=== PATIENT | female | born 1990 | race Caucasian/White ===

== ENCOUNTER 2017-10-30 05:25 | Outpatient (CLI) | payer OTHER | END 2017-10-30 06:10 | disposition home or self-care (01) | LOC: OBT 05:25 → L-D 05:25 → OBT 06:10 | DX: O26.892 Other specified pregnancy related conditions, second trimester (principal); R10.2 Pelvic and perineal pain; Z3A.22 22 weeks gestation of pregnancy | CPT/HCPCS: Z7500 ==

== ENCOUNTER 2017-10-30 08:55 | Inpatient (IN) | payer OTHER ==
[2017-10-30] MEDS ORDERED: BUTORPHANOL 2 MG INJ (09:21)
[2017-10-30] MEDS ORDERED: OXYTOCIN 30 UNITS/LR 500 ML IV ×4 (09:30→15:00)
[2017-10-30] MEDS ORDERED: LACTATED RINGER'S 250 ML IV (09:30)
[2017-10-30] MEDS ORDERED: METHYLERGONOVINE 0.2 MG INJ IM ×3 (09:30→15:00)
[2017-10-30] MEDS ORDERED: MISOPROSTOL 200 MCG TAB PR ×3 (09:30→15:00)
[2017-10-30] MEDS ORDERED: LIDOCAINE 1% (MPF) 30 ML INJ INJ ×2 (09:30→14:00)
[2017-10-30] MEDS ORDERED: CARBOPROST 250 MCG INJ IM ×3 (09:30→15:00)
[2017-10-30] MEDS: BUTORPHANOL 2 MG INJ IV (09:40)
[2017-10-30] MEDS: LACTATED RINGER'S 1,000 ML IV (09:41)
[2017-10-30] MEDS: FENTAnyl 50 MCG/ML VIAL IM (10:31)
[2017-10-30] MEDS: MEPERIDINE 50 MG INJ IM (10:34)
[2017-10-30] MEDS ORDERED: IBUPROFEN 600 MG TAB PO ×2 (14:00→18:00)
[2017-10-30 14:15] LABS: ABNORMAL IP MESSAGE 1; HEMATOCRIT 32.9 % (37.0-47.0); MEAN CORPUSCULAR HEMOGLOBIN 28.1 pg (29.0-33.0); MEAN CORPUSCULAR HGB CONC 33.4 g/dl (32.0-37.0); MEAN CORPUSCULAR VOLUME 84.1 fl (82.0-101.0); MEAN PLATELET VOLUME 9.2 fl (7.4-10.4); PLATELET COUNT 295 10^3/UL (140-415); RED BLOOD COUNT 3.91 10^6/ul (4.20-5.40); RED CELL DISTRIBUTION WIDTH 13.5 % (11.5-14.5)
[2017-10-30 14:16] LABS: ADD MAN DIFF? YES; POSITIVE DIFF @See below
[2017-10-30] MEDS: OXYTOCIN 30 UNITS/LR 500 ML IV (14:19)
[2017-10-30 14:35] LABS: INR 1.05; PROTIME 13.8 Sec (11.9-14.9); PT RATIO 1.1
[2017-10-30 14:36] LABS: PARTIAL THROMBOPLASTIN TIME 32.1 Sec (25.0-35.0)
[2017-10-30 14:42] LABS: ANISOCYTOSIS 1+ (0-0); BAND NEUTROPHILS % (M) 18 % (0-4); LYMPHOCYTES #M 0.8 10^3/ul (0.8-2.9); LYMPHOCYTES % (M) 3 % (15-51); MONOCYTE #M 0.5 10^3/ul (0.3-0.9); MONOCYTES % (M) 2 % (0-11); PLATELET ESTIMATE NORMAL; POLYCHROMASIA 1+ (0-0); ROULEAU 1+ (0-0); SEGMENTED NEUTROPHILS (M) % 77 % (39-77)
[2017-10-30] MEDS ORDERED: WITCH HAZEL/GLYCERIN PAD PR (15:00)
[2017-10-30] MEDS ORDERED: ONDANSETRON 4 MG INJ IV (15:00)
[2017-10-30] MEDS ORDERED: HYDROCODONE/APAP (5/325) TAB PO (15:00)
[2017-10-30] MEDS ORDERED: ZOLPIDEM 5 MG TAB PO (15:00)
[2017-10-30] MEDS ORDERED: DIPHENHYDRAMINE 25 MG CAP PO (15:00)
[2017-10-30 15:21] LABS: RAPID PLASMA REAGIN NONREACTIVE (NR)
[2017-10-30] MEDS ORDERED: SENNA/DOCUSATE NA (8.6MG/50MG) TAB PO (21:00)
[2017-11-01] MEDS ORDERED: DIPHTH/TET/ACEL PERTUSS (ADULT) 0.5 ML VIAL IM* (09:00)
[2017-11-01] MEDS ORDERED: MEASLES,MUMPS,RUBELLA VACCINE INJ SC* (09:00)
[2017-11-01] MEDS ORDERED: VARICELLA VACCINE LIVE/PF 1,350 UNIT/0.5 ML ML SC* (09:00)
== END 2017-10-30 17:35 | disposition home or self-care (01) | DRG 775 ==
LOC: OBT 08:55 → L-D 08:56 → OBT 09:06 → L-D 08:59
PROVIDERS: Obstetrics & Gynecology Obstetrics
PROC: 10E0XZZ Delivery of Products of Conception, External Approach (ICD-10-PCS; principal; 2017-10-30)
DX: O36.4XX0 Maternal care for intrauterine death, not applicable or unspecified (principal); O34.219 Maternal care for unspecified type scar from previous cesarean delivery; Z3A.22 22 weeks gestation of pregnancy; Z37.1 Single stillbirth
CPT/HCPCS: 85025; 85610; 85730; 86592; 86850; 86900; 86901

== ENCOUNTER 2018-12-17 07:20 | Inpatient (IN) | payer OTHER ==
[2018-12-17] MEDS ORDERED: MISOPROSTOL 200 MCG TAB PR ×2 (09:00→23:00)
[2018-12-17] MEDS ORDERED: OXYTOCIN 30 UNITS/LR 500 ML IV ×4 (09:00→23:00)
[2018-12-17] MEDS ORDERED: METHYLERGONOVINE 0.2 MG INJ IM ×2 (09:00→23:00)
[2018-12-17] MEDS ORDERED: CARBOPROST 250 MCG INJ IM ×2 (09:00→23:00)
[2018-12-17] MEDS ORDERED: CEFAZOLIN 2 GM/50 ML (PMX) 50 ML IVPB (09:00)
[2018-12-17] MEDS: LACTATED RINGER'S 1,000 ML IV ×2 (09:13→14:17)
[2018-12-17 09:19] LABS: ADD MAN DIFF? NO
[2018-12-17 09:29] LABS: BASOPHILS % 0.3 % (0.0-2.0); EOSINOPHILS # 0.1 10^3/ul (0.0-0.5); EOSINOPHILS % 1.1 % (0.0-7.0); HEMATOCRIT 30.9 % (37.0-47.0); HEMOGLOBIN 9.4 g/dl (12.0-16.0); LYMPHOCYTES # 1.4 10^3/ul (0.8-2.9); LYMPHOCYTES % 22.7 % (15.0-51.0); MEAN CORPUSCULAR HEMOGLOBIN 23.6 pg (29.0-33.0); MEAN CORPUSCULAR HGB CONC 30.4 g/dl (32.0-37.0); MEAN CORPUSCULAR VOLUME 77.4 fl (82.0-101.0); MEAN PLATELET VOLUME 9.3 fl (7.4-10.4); MONOCYTE # 0.5 10^3/ul (0.3-0.9); MONOCYTES % 7.6 % (0.0-11.0); NEUTROPHIL # 4.2 10^3/ul (1.6-7.5); PLATELET COUNT 340 10^3/UL (140-415); RED BLOOD COUNT 3.99 10^6/ul (4.20-5.40); RED CELL DISTRIBUTION WIDTH 18.4 % (11.5-14.5)
[2018-12-17 09:29] LABS: WHITE BLOOD COUNT 6.2 10^3/ul (4.8-10.8)
[2018-12-17 09:47] LABS: INR 0.92; PROTIME 12.5 Sec (11.9-14.9)
[2018-12-17 09:48] LABS: PARTIAL THROMBOPLASTIN TIME 25.9 Sec (23.0-35.0)
[2018-12-17 10:19] LABS: HEPATITIS B SURFACE ANTIGEN NEGATIVE (NEGATIVE)
[2018-12-17 11:24] LABS: AMPHETAMINE/METHAMPHETAMINE Negative (NEGATIVE); BARBITURATES Negative (NEGATIVE); BENZODIAZEPINES Negative (NEGATIVE); CANNABINOIDS Positive (NEGATIVE); COCAINE Negative (NEGATIVE); OPIATES Negative (NEGATIVE)
[2018-12-17] MEDS ORDERED: PHENYLephrine (100 MCG/ML) 10ML SYG (16:59)
[2018-12-17] MEDS ORDERED: ONDANSETRON 4 MG INJ (17:00)
[2018-12-17] MEDS ORDERED: morphine SULFATE/PF (10 MG/10 ML) INJ (17:00)
[2018-12-17 17:25] LABS: RAPID PLASMA REAGIN NONREACTIVE (NR)
[2018-12-17] MEDS: OXYTOCIN 30 UNITS/LR 500 ML IV (20:38)
[2018-12-17] MEDS ORDERED: KETOROLAC 30 MG INJ IM (22:44)
[2018-12-17] MEDS ORDERED: IPRATROPIUM (NEB) 0.5 MG/2.5 ML AMP HHN (23:00)
[2018-12-17] MEDS ORDERED: METHYLERGONOVINE 0.2 MG TAB PO (23:00)
[2018-12-17] MEDS ORDERED: hydrALAzine 20 MG INJ IV (23:00)
[2018-12-17] MEDS ORDERED: LABETALOL HCL 20MG INJ IV (23:00)
[2018-12-17] MEDS ORDERED: HYDROmorphONE 1 MG/5 ML IV SYRINGE IV ×3 (23:00)
[2018-12-17] MEDS ORDERED: morphine 2 MG INJ IV ×2 (23:00)
[2018-12-17] MEDS ORDERED: DIPHENHYDRAMINE 50 MG INJ IV ×2 (23:00)
[2018-12-17] MEDS ORDERED: ONDANSETRON 4 MG INJ IV ×2 (23:00)
[2018-12-17] MEDS ORDERED: MEPERIDINE 25 MG INJ IV (23:00)
[2018-12-17] MEDS ORDERED: ALBUTEROL 0.083% (NEB) 2.5 MG/3 ML AMP HHN (23:00)
[2018-12-17] MEDS ORDERED: NALOXONE (0.4 MG/ML) INJ IV (23:00)
[2018-12-17] MEDS ORDERED: NALBUPHINE HCL (10 MG/1 ML) INJ IV (23:00)
[2018-12-17] MEDS ORDERED: MIDAZOLAM 1 MG/ML 2 ML INJ IV (23:00)
[2018-12-17] MEDS ORDERED: TRIMETHOBENZAMIDE 100 MG/ML VIAL IM ×2 (23:00)
[2018-12-17] MEDS ORDERED: OXYCODONE/ACETAMINOPHEN (5/325) TAB PO ×2 (23:00)
[2018-12-17] MEDS ORDERED: EPHEDrine 25 MG/5 ML SYG IV (23:00)
[2018-12-17] MEDS ORDERED: FENTAnyl 50 MCG/ML VIAL IV ×3 (23:00)
[2018-12-17] MEDS: KETOROLAC 30 MG INJ IV (23:11)
[2018-12-18] MEDS: DEXTROSE 5%-LR 1,000 ML IV ×3 (04:53→14:04)
[2018-12-18 08:02] LABS: ADD MAN DIFF? NO
[2018-12-18 08:08] LABS: WHITE BLOOD COUNT 8.5 10^3/ul (4.8-10.8)
[2018-12-18 08:08] LABS: BASOPHILS % 0.2 % (0.0-2.0); EOSINOPHILS % 0.5 % (0.0-7.0); HEMATOCRIT 27.5 % (37.0-47.0); HEMOGLOBIN 8.4 g/dl (12.0-16.0); LYMPHOCYTES # 1.6 10^3/ul (0.8-2.9); LYMPHOCYTES % 18.9 % (15.0-51.0); MEAN CORPUSCULAR HEMOGLOBIN 23.8 pg (29.0-33.0); MEAN CORPUSCULAR HGB CONC 30.5 g/dl (32.0-37.0); MEAN CORPUSCULAR VOLUME 77.9 fl (82.0-101.0); MEAN PLATELET VOLUME 9.5 fl (7.4-10.4); MONOCYTE # 0.6 10^3/ul (0.3-0.9); MONOCYTES % 7.1 % (0.0-11.0); NEUTROPHIL # 6.2 10^3/ul (1.6-7.5); NEUTROPHILS % 72.9 % (39.0-77.0); PLATELET COUNT 271 10^3/UL (140-415); RED BLOOD COUNT 3.53 10^6/ul (4.20-5.40); RED CELL DISTRIBUTION WIDTH 17.8 % (11.5-14.5)
[2018-12-18] MEDS: LANOLIN HPA 1 PKT TOP (09:22)
[2018-12-18] MEDS: SENNA/DOCUSATE NA (8.6MG/50MG) TAB PO ×2 (09:22→22:57)
[2018-12-18] MEDS: KETOROLAC 30 MG INJ IV (10:40)
[2018-12-18] MEDS ORDERED: DIPHTH/TET/ACEL PERTUSS (ADULT) 0.5 ML VIAL IM* (11:00)
[2018-12-18] MEDS: IBUPROFEN 800 MG TAB PO (18:18)
[2018-12-18] MEDS: HYDROCODONE/APAP (5/325) TAB PO (22:57)
[2018-12-19] MEDS: DEXTROSE 5%-LR 1,000 ML IV ×2 (01:09→06:48)
[2018-12-19] MEDS: IBUPROFEN 800 MG TAB PO ×3 (02:33→17:35)
[2018-12-19] MEDS: HYDROCODONE/APAP (5/325) TAB PO ×4 (06:04→22:07)
[2018-12-19] MEDS: SENNA/DOCUSATE NA (8.6MG/50MG) TAB PO ×2 (09:01→22:07)
[2018-12-19] MEDS: MAGNESIUM HYDROXIDE 30ML CUP PO (09:01)
[2018-12-20] MEDS: IBUPROFEN 800 MG TAB PO ×2 (01:39→10:42)
[2018-12-20] MEDS: HYDROCODONE/APAP (5/325) TAB PO ×3 (05:22→14:01)
[2018-12-20] MEDS: FERROUS GLUCONATE (EC) 325 MG TAB PO (08:06)
[2018-12-20] MEDS: SENNA/DOCUSATE NA (8.6MG/50MG) TAB PO (08:06)
[2018-12-20] MEDS: MAGNESIUM HYDROXIDE 30ML CUP PO (08:06)
[2018-12-20] MEDS: DIPHTH/TET/ACEL PERTUSS (ADULT) 0.5 ML VIAL IM* (11:42)
[2018-12-20] MEDS: MEASLES,MUMPS,RUBELLA VACCINE INJ SC* (11:43)
== END 2018-12-20 16:33 | disposition home or self-care (01) | DRG 785 ==
LOC: L-D 07:20 → PP1 23:04
PROC: 10D00Z1 Extraction of Products of Conception, Low, Open Approach (ICD-10-PCS; principal; 2018-12-17 10:30)
PROC: 0UT70ZZ Resection of Bilateral Fallopian Tubes, Open Approach (ICD-10-PCS; 2018-12-17 10:30)
DX: O65.5 Obstructed labor due to abnormality of maternal pelvic organs (principal); O34.211 Maternal care for low transverse scar from previous cesarean delivery; Z3A.39 39 weeks gestation of pregnancy; Z37.0 Single live birth; Z30.2 Encounter for sterilization
CPT/HCPCS: 80307; 85025; 85610; 85730; 86592; 86850; 86900; 86901; 87340; 88302; 90715; 99464